=== PATIENT | male | born 1985 | race Two or more races ===

== ENCOUNTER 2020-06-11 13:47 | Outpatient (REF) | payer OTHER, SELFPAY ==
[2020-06-11 16:00] LABS: SARS COV2 PCR INHOUSE NEGATIVE (Negative)
== END 2020-06-11 13:48 | disposition home or self-care (01) ==
LOC: HO.LAB 13:47
PROVIDERS: Visit Provider Internal Medicine
DX: Z20.822 Contact with and (suspected) exposure to COVID-19 (principal)
CPT/HCPCS: C9803; U0003

== ENCOUNTER 2020-06-18 11:49 | Outpatient (REF) | payer OTHER, SELFPAY ==
[2020-06-18 13:30] LABS: COVID-19 Test Negative (Negative)
== END 2020-06-18 11:50 | disposition home or self-care (01) ==
LOC: HO.LAB 11:49
PROVIDERS: Visit Provider Internal Medicine
DX: Z20.822 Contact with and (suspected) exposure to COVID-19 (principal)
CPT/HCPCS: 36415; 87635; C9803

== ENCOUNTER 2020-11-03 09:47 | Outpatient (REF) | payer OTHER, SELFPAY ==
[2020-11-03 10:20] LABS: COVID-19 Test Negative (Negative)
== END 2020-11-03 09:48 | disposition home or self-care (01) ==
LOC: HO.LAB 09:47
PROVIDERS: Visit Provider Internal Medicine
DX: Z20.822 Contact with and (suspected) exposure to COVID-19 (principal)
CPT/HCPCS: 36415; 87635; C9803

== ENCOUNTER 2021-03-10 12:49 | Emergency (ER) | payer MEDICAID, SELFPAY ==
--- NOTE | ~2021-03-10 | CT_ITS ---
EXAMINATION: CT HEAD WITHOUT CONTRAST CLINICAL INFORMATION: Left-sided facial droop. COMPARISON: No relevant prior imaging. TECHNIQUE: Contiguous axial imaging was performed from the skull base to vertex without intravenous administration of contrast. This CT examination was performed using dose optimization techniques as appropriate, variously including the following: *Automated exposure control *Adjustment of mA and/or kV according to patient size (this includes techniques or standardized protocols for targeted exams where dose is matched to indication/reason for exam; i.e. extremities or head) *Use of iterative reconstruction technique DLP: 820 mGy-cm FINDINGS: There is no acute intracranial hemorrhage or abnormal extra-axial collection. No intracranial mass effect or midline shift. Lateral and third ventricles are normal. No hydrocephalus. Ruby-white matter differentiation is preserved and there is no evidence of acute territorial infarct. The calvarium and skull base are intact. Mastoid air cells and middle ear cavities are well aerated. No active paranasal sinus disease. CT/CT head/brain wo con IMPRESSION: Normal CT scan of the head.
[2021-03-10 13:05] VITALS: BP 220/107; PULSE 111; O2SAT 95; BMI 34.4
--- NOTE | 2021-03-10 13:41 | ED.NEUROSD ---
HPI - Neuro Symptoms/Deficit General Chief Complaint: Neuro Symptoms/Deficit Stated Complaint: facial spasm Time Seen by Provider: 03/10/21 13:40 Source: patient Mode of arrival: ambulatory Limitations: no limitations History of Present Illness HPI Narrative: complete L sided facial droop denies trauma denies tick bites Onset (ago): day(s) (2) Location: left face History of same: No Severity: severe Quality: weak and constant Relieving factors: none Exacerbating factors: none Context: gradual onset On Anticoagulants: No Associated symptoms: headaches Treatments Prior to Arrival: none Related Data Allergies Allergy/AdvReac Type Severity Reaction Status Date / Time No Known Allergies Allergy Verified 03/10/21 13:46 Review of Systems Review of Systems: Constitutional : No Fever, No Chills, No Fatigue ENT/Mouth : No sore throat, No Rhinorrhea Eyes: No Eye Pain, No Swelling, No Redness Cardiovascular : No Chest Pain, No SOB, No Dyspnea on Exertion Respiratory : No Cough, No Sputum Gastrointestinal : No Nausea, No Vomiting, No Diarrhea, No abdominal Pain Genitourinary : No Dysuria, No Urinary Frequency, No Hematuria, Musculoskeletal : No joint pain, No Myalgias, No Joint Swelling Skin : No Skin Lesions, No rash Neuro : pos facial Weakness, No Numbness, No Dizziness, positive Headache Psych : No Anxiety/Panic, No Depression Heme/Lymph: No Bruising, No Bleeding,No Lymphadenopathy Endocrine : No Polyuria, No Polydipsia All other systems reviewed and are negative [facility] Past Medical History Attestation statement: The following information was validated with the patient. Medical History (Updated 03/10/21 @ 15:54 by Sofya Davies DO) No known health problems Social History Social History (Updated 03/10/21 @ 14:35 by Sofya Davies DO) Alcohol intake: never Patient Tobacco Use Status: Never used Tobacco Use of substances other than those prescribed or required for medical reasons: No Advance Directives: No Advance Directives Information Provided: No Physical Exam Vital Signs: Vital Signs: Last Vital Signs Temp 99.2 F 03/10/21 15:19 Pulse 103 H 03/10/21 15:19 BP 206/116 H 03/10/21 15:19 Pulse Ox 99 03/10/21 15:19 BMI result Body Mass Index 34.4 Appearance: Alert. Oriented X3. No acute distress. Eyes: Pupils equal, round and reactive to light. ENT: Pharynx normal. L TM normal Neck: Normal inspection. Neck supple. CVS: Normal heart rate and rhythm. Pulses normal. Respiratory: No respiratory distress. Breath sounds normal. Abdomen: Soft and nontender. Skin: Skin warm and dry. Normal skin color. Normal skin turgor. Extremities: No lower extremity edema. No calf ttp Neuro: Oriented X 3. all extremities intact . L sided complete paralysis including L eyebrow Course Course Course Narrative: CT head negative with symptoms x 48 hours has HTN and DM will start on HCTZ and metformin refer to [facility], doubt stroke given it includes entire face BP still high - IV labetalol ordered, PO HCTZ has no insurance has no PCP anticipate if he responds to labetalol patient will need cheaper medications including metformin 1,000mg BID, HCTZ 25mg daily, amlodipine 5mg daily until he can see PCP, will not be able to get DM supplies until insurance is done signed out to [employer] D[employer]ER playing on phone, smiling no distress at this time no severe headaches - chronic findings, if his BP responds to oral agent and IV labetalol would start on metformin 1, 000mg BID, HCTZ 25mg daily, amlodipine 5mg daily with enough refills to get him through PCP appointment MDM - Neuro Symptoms/Deficit MDM Narrative Medical decision making narrative: 35 yo male who does not go to the doctor here with c/o gardual onset L sided facial paralysis including upper and lower - suspect peripheral palsy. He is HTNive will obtain labs and CT head. suspect longstanding HTN and not related to facial palsy Lab Data Result diagrams: 03/10/21 14:05 03/10/21 14:05 Labs: Lab Results 03/10/21 03/10/21 03/10/21 Range/Units 14:05 14:05 14:05 WBC 9.5 (4.8-10.8) X10*3/uL RBC 5.51 (4.60-5.80) X10*6/uL Hgb 16.8 (14.0-18.0) g/dl Hct 52.8 H (42.0-52.0) % MCV 95.8 (80.0-98.0) fL MCH 30.5 (27.0-33.0) pg MCHC 31.8 (31.0-36.0) g/dl RDW 13.7 (11.0-16.0) % Plt Count 163 (160-400) X10*3/uL MPV 11.8 (9.4-12.4) fL Immature Gran % (Auto) 0.3 (0.0-0.4) % Neut % (Auto) 67.2 (45-73) % Lymph % (Auto) 25.4 (20-40) % Marinette % (Auto) 6.2 (2-11) % Eos % (Auto) 0.6 (0-4) % Baso % (Auto) 0.3 (0-2) % Lymph # (Auto) 2.4 (1.2-4.9) X10*3/uL Marinette # (Auto) 0.6 (0.1-1.2) X10*3/uL Eos # (Auto) 0.1 (0.0-0.4) X10*3/uL Baso # (Auto) 0.0 (0.0-0.2) X10*3/uL Abs Immat Gran (auto) 0.03 (0.00-0.03) X10*3/uL Absolute Neuts (auto) 6.4 (2.0-8.3) x10*3/uL Absolute Nucleated RBC 0.000 (0.0-0.012) X10*3/uL Nucleated RBC % (auto) 0.0 (0.0-0.2) /100WBC Smear Tech's Comments VERIFIED Sodium 136 (135-145) mmol/L Potassium 3.8 (3.3-5.1) mmol/L Chloride 101 (96-108) mmol/L Carbon Dioxide 27 (22-29) mmol/L Anion Gap 12 (12-20) BUN 7 L (9-16) mg/dL Creatinine 0.90 (0.5-1.4) mg/dL Estim Creat Clear Calc 116.6 Estimated GFR > 60 Random Glucose 404 H* (60-115) mg/dL Estimat Average Glucose mg/dL Hemoglobin A1c % % Calcium 9.2 (8.4-10.2) mg/dL Total Bilirubin 0.5 (0.0-1.0) mg/dL Direct Bilirubin 0.2 (0.0-0.5) mg/dL AST 20 (5-37) U/L ALT 24 (0-40) U/L Alkaline Phosphatase 97 (39-117) U/L Total Protein 7.5 (6.5-8.0) g/dL Albumin 3.8 (3.5-5.0) g/dL TSH 1.75 (0.32-4.0) uIU/mL 03/10/21 Range/Units 14:05 WBC (4.8-10.8) X10*3/uL RBC (4.60-5.80) X10*6/uL Hgb (14.0-18.0) g/dl Hct (42.0-52.0) % MCV (80.0-98.0) fL MCH (27.0-33.0) pg MCHC (31.0-36.0) g/dl RDW (11.0-16.0) % Plt Count (160-400) X10*3/uL MPV (9.4-12.4) fL Immature Gran % (Auto) (0.0-0.4) % Neut % (Auto) (45-73) % Lymph % (Auto) (20-40) % Marinette % (Auto) (2-11) % Eos % (Auto) (0-4) % Baso % (Auto) (0-2) % Lymph # (Auto) (1.2-4.9) X10*3/uL Marinette # (Auto) (0.1-1.2) X10*3/uL Eos # (Auto) (0.0-0.4) X10*3/uL Baso # (Auto) (0.0-0.2) X10*3/uL Abs Immat Gran (auto) (0.00-0.03) X10*3/uL Absolute Neuts (auto) (2.0-8.3) x10*3/uL Absolute Nucleated RBC (0.0-0.012) X10*3/uL Nucleated RBC % (auto) (0.0-0.2) /100WBC Smear Tech's Comments Sodium (135-145) mmol/L Potassium (3.3-5.1) mmol/L Chloride (96-108) mmol/L Carbon Dioxide (22-29) mmol/L Anion Gap (12-20) BUN (9-16) mg/dL Creatinine (0.5-1.4) mg/dL Estim Creat Clear Calc Estimated GFR Random Glucose (60-115) mg/dL Estimat Average Glucose 326 mg/dL Hemoglobin A1c % 13.0 % Calcium (8.4-10.2) mg/dL Total Bilirubin (0.0-1.0) mg/dL Direct Bilirubin (0.0-0.5) mg/dL AST (5-37) U/L ALT (0-40) U/L Alkaline Phosphatase (39-117) U/L Total Protein (6.5-8.0) g/dL Albumin (3.5-5.0) g/dL TSH (0.32-4.0) uIU/mL ECG Data Attestation: I personally reviewed and interpreted this ECG as follows: ECG interpretation date: 03/10/21 ECG interpretation time: 14:04 Interpretation: Rate: 98 Rhythm: NSR Wilburn: left LVH Normal P waves. Normal AMAN. Normal QRS complex. ST T wave : no BRITTANY, normal qTC: normal prior studies: no acute ischemia The study has been interpreted contemporaneously by me. . Discharge Plan Discharge Clinical Impression: HTN (hypertension), Estrada's palsy, Diabetes Instructions: Type 2 Diabetes in Adults: New Diagnosis (ED), Hypertension (ED), Diabetes and Nutrition (ED) Additional Instructions: return to ED for any worsening symptoms or concerns you need to get family doctor as soon as possible. [place] [phone]
--- NOTE | 2021-03-10 13:47 | ECG_ITS ---
Test Reason : stroke? Blood Pressure : / mmHG Vent. Rate : 098 BPM Atrial Rate : 098 BPM P-R Int : 156 ms QRS Dur : 082 ms QT Int : 354 ms P-R-T Axes : 018 -16 008 degrees QTc Int : 451 ms Normal sinus rhythm Minimal voltage criteria for LVH, may be normal variant ( R in aVL ) Cannot rule out Anterior infarct , age undetermined Abnormal ECG No previous ECGs available Referred By: Sofya Davies Electronically Signed By:Billy Brewster
[2021-03-10 14:15] LABS: Basophils Percent Auto 0.3 % (0-2); Eosinophils Absolute Auto 0.1 X10*3/uL (0.0-0.4); Eosinophils Percent Auto 0.6 % (0-4); Hematocrit 52.8 % (42.0-52.0); Hemoglobin 16.8 g/dl (14.0-18.0); Imm Gran Abs Auto 0.03 X10*3/uL (0.00-0.03); Imm Gran Pct Auto 0.3 % (0.0-0.4); Lymphocytes Absolute Auto 2.4 X10*3/uL (1.2-4.9); Lymphocytes Percent Auto 25.4 % (20-40); MANUAL DIFF FLAG SCAN; Mean Corpuscular HGB Conc 31.8 g/dl (31.0-36.0); Mean Corpuscular Hemoglobin 30.5 pg (27.0-33.0); Mean Corpuscular Volume 95.8 fL (80.0-98.0); Monocytes Absolute Auto 0.6 X10*3/uL (0.1-1.2); Monocytes Percent Auto 6.2 % (2-11); Neutrophils Absolute Auto 6.4 x10*3/uL (2.0-8.3); Neutrophils Percent Auto 67.2 % (45-73); PLT CLUMP 1; Red Blood Count 5.51 X10*6/uL (4.60-5.80); Red Cell Distribution Width 13.7 % (11.0-16.0); SCAN SMEAR FLAG 1
[2021-03-10 14:16] LABS: White Blood Count 9.5 X10*3/uL (4.8-10.8)
[2021-03-10 14:30] LABS: Mean Platelet Volume 11.8 fL (9.4-12.4); Platelet Count 163 X10*3/uL (160-400); SLIDE REVIEW VERIFIED
[2021-03-10 14:33] LABS: Alanine Aminotransferase 24 U/L (0-40); Albumin Level 3.8 g/dL (3.5-5.0); Alkaline Phosphatase 97 U/L (39-117); Anion Gap 12 (12-20); Aspartate Amino Transferase 20 U/L (5-37); Bilirubin Direct 0.2 mg/dL (0.0-0.5); Bilirubin Total 0.5 mg/dL (0.0-1.0); Blood Urea Nitrogen 7 mg/dL (9-16); Calcium 9.2 mg/dL (8.4-10.2); Carbon Dioxide 27 mmol/L (22-29); Chloride 101 mmol/L (96-108); Creatinine Clr Calc Pharmacy 116.6; Estimated Glomerular Filt Rate > 60; Glucose Random 404 mg/dL (60-115); Potassium 3.8 mmol/L (3.3-5.1); Sodium 136 mmol/L (135-145); Total Protein 7.5 g/dL (6.5-8.0)
[2021-03-10 14:53] LABS: TSH reflex Free T4 1.75 uIU/mL (0.32-4.0)
[2021-03-10 15:02] LABS: Estimated Average Glucose 326 mg/dL
[2021-03-10 15:19] VITALS: BP 206/116; PULSE 103; TEMP 37.3; O2SAT 99
[2021-03-10] MEDS: hydroCHLOROthiazide 25 MG TABLET PO (15:41)
[2021-03-10] MEDS: Insulin Lispro 100 UNIT/ML 3 ML VIAL SUBCUT (15:42)
[2021-03-10] MEDS: Acetaminophen 325 MG TABLET 650 MG PO (15:45)
[2021-03-10 16:03] LABS: COVID-19 Test Negative (Negative); IDNOW Serial# 9DD0AD1C
[2021-03-10 16:04] VITALS: BP 212/130; PULSE 106
[2021-03-10] MEDS: 0.9 % Sodium Chloride 1,000 ML 999 ML IV (16:09)
[2021-03-10 16:36] VITALS: BP 197/116; PULSE 105
[2021-03-10] MEDS: Labetalol HCL 100 MG/20 ML VIAL 10 MG IVPUSH (16:36)
[2021-03-10 16:56] VITALS: BP 185/108; PULSE 98; RESP 17; TEMP 37.2; O2SAT 99
[2021-03-10 17:08] LABS: Glucose, Whole Blood 274 mg/dL (60-115)
[2021-03-11 05:02] LABS: Lyme Abs Screen <0.90 index
== END 2021-03-10 17:49 | disposition home or self-care (01) ==
PROVIDERS: Emergency Provider Emergency Medicine
DX: G51.0 Bell's palsy (principal); I10 Essential (primary) hypertension; E11.9 Type 2 diabetes mellitus without complications; R51.9 Headache, unspecified; Z20.822 Contact with and (suspected) exposure to COVID-19; Z79.899 Other long term (current) drug therapy
CPT/HCPCS: 36415; 70450; 80048; 80076; 82947; 83036; 84443; 85025; 86617; 86618; 87635; 93005; 96361; 96374; 99284; 99285

== ENCOUNTER → 2021-06-17 10:54 | Outpatient (BNVA) | payer OTHER, SELFPAY | PROVIDERS: PCP Physician Assistant; Visit Provider Dietitian, Registered | DX: E11.65 Type 2 diabetes mellitus with hyperglycemia (principal) | CPT/HCPCS: 97802 ==

== ENCOUNTER 2021-07-25 07:42 | Outpatient (REF) | payer OTHER, SELFPAY ==
[2021-07-25 08:43] LABS: Hematocrit 44.6 % (42.0-52.0); Mean Corpuscular HGB Conc 33.6 g/dl (31.0-36.0); Mean Corpuscular Hemoglobin 28.6 pg (27.0-33.0); Mean Platelet Volume 11.6 fL (9.4-12.4); Platelet Count 257 X10*3/uL (160-400); Red Blood Count 5.25 X10*6/uL (4.60-5.80); Red Cell Distribution Width 13.9 % (11.0-16.0); White Blood Count 10.7 X10*3/uL (4.8-10.8)
[2021-07-25 08:50] LABS: Estimated Average Glucose 108 mg/dL; Hemoglobin A1c % 5.4 %
[2021-07-25 09:06] LABS: Alanine Aminotransferase 22 U/L (0-40); Albumin Level 4.2 g/dL (3.5-5.0); Alkaline Phosphatase 71 U/L (39-117); Anion Gap 12 (12-20); Aspartate Amino Transferase 16 U/L (5-37); Bilirubin Total 0.5 mg/dL (0.0-1.0); Blood Urea Nitrogen 11 mg/dL (9-16); Calcium 9.8 mg/dL (8.4-10.2); Carbon Dioxide 27 mmol/L (22-29); Chloride 105 mmol/L (96-108); Cholesterol 150 mg/dL; Estimated Glomerular Filt Rate > 60; Glucose Fasting 99 mg/dL (60-99); HDL Cholesterol 29 mg/dL; LDL Cholesterol Calculated 100 mg/dl; Potassium 4.2 mmol/L (3.3-5.1); Sodium 140 mmol/L (135-145); Total Protein 7.7 g/dL (6.5-8.0); Triglycerides 109 mg/dL
[2021-07-25 09:27] LABS: TSH reflex Free T4 2.01 uIU/mL (0.32-4.0)
[2021-07-25 09:41] LABS: Creatinine Urine 109.44 mg/dL; Microalbum/Creatinine Ratio Ur 346.3 ug/mg cr
[2021-07-27 19:45] LABS: Herpes Simplex Type 1 IgG <0.90 index; Herpes Simplex Type 2 IgG <0.90 index
== END 2021-07-25 07:43 | disposition home or self-care (01) ==
LOC: HO.LAB 07:42
PROVIDERS: PCP Physician Assistant; Visit Provider Physician Assistant
DX: E11.65 Type 2 diabetes mellitus with hyperglycemia (principal); G51.0 Bell's palsy
CPT/HCPCS: 36415; 80053; 80061; 82043; 83036; 84443; 85027; 86695; 86696

== ENCOUNTER → 2021-07-29 11:22 | Outpatient (BNVA) | payer OTHER, SELFPAY | PROVIDERS: PCP Physician Assistant; Visit Provider Dietitian, Registered | DX: E11.65 Type 2 diabetes mellitus with hyperglycemia (principal) | CPT/HCPCS: 97803 ==

== ENCOUNTER → 2021-09-27 11:20 | Outpatient (BNVA) | payer OTHER, SELFPAY | PROVIDERS: PCP Physician Assistant; Visit Provider Dietitian, Registered | DX: E11.65 Type 2 diabetes mellitus with hyperglycemia (principal) | CPT/HCPCS: 97803 ==

== ENCOUNTER → 2022-01-30 09:22 | Outpatient (BNVA) | payer OTHER, SELFPAY | PROVIDERS: PCP Physician Assistant; Visit Provider Dietitian, Registered | DX: E11.65 Type 2 diabetes mellitus with hyperglycemia (principal) | CPT/HCPCS: 97803 ==

== ENCOUNTER → 2022-07-31 09:58 | Outpatient (BNVA) | payer OTHER, SELFPAY | PROVIDERS: PCP Physician Assistant; Visit Provider Dietitian, Registered | DX: E11.65 Type 2 diabetes mellitus with hyperglycemia (principal); E66.9 Obesity, unspecified; Z68.41 Body mass index [BMI] 40.0-44.9, adult; Z71.3 Dietary counseling and surveillance | CPT/HCPCS: 97803 ==

== ENCOUNTER 2022-12-27 10:39 | Outpatient (AMB) | payer OTHER, SELFPAY ==
--- NOTE | 2022-12-27 10:47 | A.OFFPC_ITS ---
Vital Signs 12/27/22 11:00 Height 5 ft 3 in Weight 221 lb BMI 39.1 BP 142/100 H Blood Pressure Location Lt brachial Position Sitting Respiration 17 Pulse 82 Pulse Source Pulse Oximeter Pulse Oximetry (%) 99 Oxygen Delivery Method Room Air Intake Visit Reasons: DM, HTN Intake Note: Patient is here to follow up on DMM and HTN. Neonatal Doctor Required: No Information Interpreted: non-clinical & clinical Head Men'S Golf Coach: Not Required per policy Accompanied by: Self / Same As Patient Allergies No Known Allergies Allergy (Verified 12/27/22 12:14) Medication List - Last Reconciled 12/27/22 by Wale Ennis PA-C amlodipine 10 mg PO DAILY 90 days blood sugar diagnostic (FreeStyle Lite Strips) As directed blood-glucose meter (FreeStyle Lite Meter kit) As directed lancets (FreeStyle Lancets) As directed lisinopril-hydrochlorothiazide 20-25 mg 1 tab PO DAILY Tobacco use date assessed: 06/27/22 Dental Screening Dental Screen Date: 12/27/22 Did you have a dental visit in the last 12 months?: No Did you have a dental problem in the last 6 months where you did not have access to dental care?: No Was dental information given to patient?: Yes HPI DM, HTN HPI Details Patient is a 37 year male here today for followup? Pmhx significant for DMII, HTN. Chichester palsy, obesity /.. ?hypertension:? Today's blood pressure in office slightly elevated. He reports at times he takes his blood pressure at home his blood pressures are slightly elevated. ? Otherwise denies any chest discomfort, headaches, shortness of breath.? .. ? Type 2 diabetes:? Diabetes well controlled without medication this time . Speaking with a dietitian and has been able to lose weight since last office visit.. PLAN:? Will continue to follow fasting blood sugar and A1c.? . ? Estrada s palsy:? Has resolving left-sided facial paralysis.? Denies any dysphagia or odynophagia, chocking.? He does have some difficulty with mastication on his left side.? Also reports still has sharp pains that are elia rt-lived over the left side of his face. .. Obesity:? Continues to work on strict dietary modifications to help lose weight.? Laboratory Tests 07/25/21 12/27/21 06/27/22 08:06 10:11 08:45 RBC 5.25 Hgb A1c (Clinic) 5.0 5.1 Laboratory Tests 07/25/21 07/25/21 07/25/21 08:06 08:06 08:06 Hgb 15.0 Hgb A1c (Clinic) Cholesterol 150 LDL Cholesterol, C alc 100 12/27/21 06/27/22 10:11 08:45 Hgb Hgb A1c (Clinic) 5.0 5.1 Cholesterol LDL Cholesterol, C alc [facility] Medical History No known health problems Family History Sister Pacemaker Social History Housing: Apartment Alcohol intake: never Patient Tobacco Use Status: Never used Tobacco e-Cigarette/Vaping Use: Never Used Current occupational status: employed 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 Depression Screening Interpretation: Positive Depression Screening Done: Yes Source: Developed by Drs. Alphonse Jung, Madan Wallace and colleagues, with an educational johana from [employer]. Thrive Questionnaire Date Thrive assessed: 06/27/22 SIN-7 AMB Questionnaire SIN-7 Date SIN - 7 assessed: 06/27/22 Source: Developed by Drs. Alphonse Jung, Madan Wallace and colleagues, with an educational johana from [employer]. Review of Systems Const Denies headache(s) Eyes Denies loss of vision ENT Denies vertigo, Denies dizziness, Denies headache(s) and Denies sore throat Card Denies chest pain, Denies leg edema and Denies lightheadedness Resp Denies cough, Denies hemoptysis and Denies wheezing GI Denies abdominal pain, Denies melena, Denies constipation, Denies diarrhea and Denies vomiting Denies dysuria, Denies urinary frequency and Denies urinary urgency Musc Denies arthralgias, Denies joint swelling, Denies numbness and Denies tingling Neuro Denies Abnormal speech present, Denies behavioral changes, Denies vertigo, Denies dizziness, Denies headache(s), Denies loss of vision, Denies memory loss, Denies numbness and Denies tingling Psych Denies anxiety, Denies behavioral changes, Denies depression, Denies memory loss and Denies panic attacks Amaury/Lymph Denies easy bleeding and Denies easy bruising Aller/Immun Denies wheezing Physical exam (Primary Care) Vital Signs: Last Vital Signs Pulse 82 12/27/22 11:00 Resp 17 12/27/22 11:00 BP 142/100 H 12/27/22 11:00 Pulse Ox 99 12/27/22 11:00 Oxygen Delivery Method Room Air 12/27/22 11:00 BMI result Body Mass Index 39.1 BMI Assessment/Plan discussion: High Tobacco/Smoking Status: Tobacco use Status Tobacco use date assessed 06/27/22 12/27/22 10:47 Patient Tobacco Use Status Never used Tobacco 12/27/22 10:47 e-Cigarette/Vaping Use Never Used 12/27/22 10:47 Depression Screening Interpretation: Positive Thrive Assessment: Date of Thrive Assessment Date Thrive assessed 06/27/22 12/27/22 10:47 Const Other: OBESE General: healthy appearing, no acute distress, alert and awake Nutritional Appearance: well nourished Orientation/consciousness: oriented to person, oriented to place and oriented to time HENMT Ears: TM's normal bilaterally General nose exam: Normal nasal mucous membranes and turbinates present Eyes Conjunctivae: conjunctivae normal Sclerae: sclerae normal Pupils: Equal, round and reactive pupils present Neck Neck: Yes no lymphadenopathy and Yes no JVD Thyroid: Thyroid normal Carotids: no bruits Resp Effort & Inspection: normal respiratory effort and not tachypneic Auscultation: no crackles, no rales, no rhonchi and no wheezes Cardio Rate: regular rate Rhythm: regular rhythm Heart sounds: no murmurs and normal S1 and S2 GI Palpation (GI): Soft to palpation, nontender, no hepatomegaly and no splenomegaly Auscultation: normal bowel sounds Skin General skin exam: no rashes or lesions noted and dry skin Neuro General: oriented to person, oriented to place and oriented to time Cranial nerves: Yes Equal, round and reactive pupils present Speech: No Abnormal speech present Gait exam (Neuro): Normal gait present Motor exam (neuro): no tremor noted Extrem Right upper extremity: full ROM Left upper extremity: full ROM Right lower extremity: full ROM; no edema Left lower extremity: full ROM; no edema Psych Mental Status: mental status grossly normal Speech and movement: Normal speech and movement present Affect: normal affect Attitude: cooperative Thought process: Normal thought process present Results AMB Hemoglobin A1c AMB Hemoglobin A1c 4.8 % Last Edit by SRINATH Garcia on 12/27/22 11:04 Results Reviewed Results Reviewed: Laboratory Last Values Hgb A1c (Clinic) 4.8 % (4.0-6.0) 12/27/22 11:03 Assessment and Plan Assessment & Plan (1) DMII (diabetes mellitus, type 2): Comment: Pt no longer on DM meds , now strictly working diet and exercise BMI at 40.7 on (08/08/21) 39.1 (01/30/22) BMI 40.3 (09/27/21) BMI 41.6 (07/29/21), BMI 42.5 (06/17/21) Code(s): E11.9 - Type 2 diabetes mellitus without complications Qualifiers: Diabetes mellitus complication status: with hyperglycemia Diabetes mellitus recreation activities coordinator insulin use: without recreation activities coordinator use Qualified Code(s): E11.65 - Type 2 diabetes mellitus with hyperglycemia Plan: A1c 4.8 today Diabetes is diet controlled Continue to follow-up with dietitian Low carbohydrate diet and weight loss (2) Microalbuminuria due to type 2 diabetes mellitus: Code(s): E11.29 - Type 2 diabetes mellitus with other diabetic kidney complication; R80.9 - Proteinuria, unspecified Plan: Continue to follow-up with nephrology. His type 2 diabetes remains controlled. (3) Obese: Code(s): E66.9 - Obesity, unspecified Qualifiers: Body mass index: BMI 39.0-39.9 Obesity classification: adult class 2 (BMI 35 - 39.9) Obesity type: due to excess calories Serious obesity comorbidity presence: with serious comorbidity Qualified Code(s): E66.01 - Morbid (severe) obesity due to excess calories; Z68.39 - Body mass index [BMI] 39.0-39.9, adult Plan: He does understand his BMI is over 30 will continue working on being more physically active and adapting to better eating habits to reduce his weight.. (4) HTN (hypertension): Code(s): I10 - Essential (primary) hypertension Qualifiers: Hypertension type: primary hypertension Qualified Code(s): I10 - Essential (primary) hypertension Plan: Goal BP equal or less than 140/90 Low-sodium diet and weight loss Continue amlodipine and lisinopril-hydrochlorothiazide Orders: Orders Microalbumin, Random (w Creat) 12/27/22 E11.29 - Type 2 diabetes mellitus with other diabetic kidney complication, R80.9 - Proteinuria, unspecified AMB Hemoglobin A1c 12/27/22 E11.9 - Type 2 diabetes mellitus without complications Comprehensive [place]. Panel Fast 12/27/22 E11.65 - Type 2 diabetes mellitus with hyperglycemia Complete Blood Count no Diff 12/27/22 I10 - Essential (primary) hypertension Medications: Refilled lisinopril-hydrochlorothiazide 20-25 mg 1 tab PO DAILY 90 tabs 1RF I10 - Essential (primary) hypertension amlodipine 10 mg PO DAILY 90 tabs 1RF 90 days I10 - Essential (primary) hypertension Coding Level of Care Code Est Pt Level 4 (45036) Diagnoses Type 2 diabetes mellitus with hyperglycemia, without long-term current use of insulin E11.65 Diabetes mellitus complication status: with hyperglycemia Diabetes mellitus recreation activities coordinator insulin use: without fdc use Microalbuminuria due to type 2 diabetes mellitus E11.29; R80.9 Class 2 severe obesity due to excess calories with serious comorbidity and body mass index (BMI) of 39.0 to 39.9 in adult E66.01; Z68.39 Body mass index: BMI 39.0-39.9 Obesity classification: adult class 2 (BMI 35 - 39.9) Obesity type: due to excess calories Serious obesity comorbidity presence: with serious comorbidity Primary hypertension I10 Hypertension type: primary hypertension
[2022-12-27 11:00] VITALS: BP 142/100; PULSE 82; RESP 17; O2SAT 99; BMI 39.1
== END 2022-12-27 11:17 | disposition home or self-care (01) ==
PROVIDERS: Visit Provider Physician Assistant
DX: E11.9 Type 2 diabetes mellitus without complications (principal)
CPT/HCPCS: 83036; 99214

== ENCOUNTER 2023-05-24 22:21 | Emergency (ER) | payer OTHER, SELFPAY ==
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
[2023-05-24 22:26] VITALS: BP 192/102; BP 198/104; PULSE 95; PULSE 98; RESP 17; TEMP 36.7; O2SAT 98; O2SAT 99; BMI 41.7
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
[2023-05-24] MEDS: Bacitracin Oint 0.9 GM PACKET 1 APPL TOPICAL (22:56)
[2023-05-24] MEDS: Acetaminophen 325 MG TABLET 975 MG PO (22:56)
[2023-05-25 00:23] VITALS: BP 200/128; PULSE 100; RESP 15; TEMP 36.7; O2SAT 99
[2023-05-25 00:54] VITALS: BP 162/83; PULSE 98; RESP 16; TEMP 36.9; O2SAT 97
[2023-05-25 01:16] VITALS: BP 162/83; PULSE 98; RESP 17; TEMP 36.8; O2SAT 99
== END 2023-05-25 01:18 | disposition home or self-care (01) ==
PROVIDERS: Emergency Provider Emergency Medicine; PCP Physician Assistant
DX: S13.4XXA Sprain of ligaments of cervical spine, initial encounter (principal); S69.92XA Unspecified injury of left wrist, hand and finger(s), initial encounter; S40.812A Abrasion of left upper arm, initial encounter; R51.9 Headache, unspecified; M54.2 Cervicalgia; M25.532 Pain in left wrist; M79.10 Myalgia, unspecified site; V42.5XXA Car driver injured in collision with two- or three-wheeled motor vehicle in traffic accident, initial encounter; Y93.9 Activity, unspecified; Y92.410 Unspecified street and highway as the place of occurrence of the external cause; Y99.8 Other external cause status
CPT/HCPCS: 70450; 72125; 73110; 99284

== ENCOUNTER 2023-09-06 09:43 | Emergency (ER) | payer OTHER, SELFPAY ==
[2023-09-06 09:45] VITALS: BP 174/99; PULSE 92; RESP 19; TEMP 36.6; O2SAT 98; BMI 39.1
--- NOTE | 2023-09-06 09:50 | ECG_ITS ---
Test Reason : high blood pressure Blood Pressure : / mmHG Vent. Rate : 092 BPM Atrial Rate : 092 BPM P-R Int : 150 ms QRS Dur : 080 ms QT Int : 360 ms P-R-T Axes : 016 -13 036 degrees QTc Int : 445 ms Normal sinus rhythm Minimal voltage criteria for LVH, may be normal variant ( R in aVL ) Anterior infarct (cited on or before 10-MAR-2021) Abnormal ECG When compared with ECG of 10-MAR-2021 13:54, No significant change was found Referred By: Generic ED Physician Electronically Signed By:RODRICK GUERIN MD
[2023-09-06 10:06] LABS: MANUAL DIFF FLAG NO
[2023-09-06 10:08] LABS: Basophils Percent Auto 0.5 % (0-2); Eosinophils Percent Auto 0.4 % (0-4); Hematocrit 52.8 % (42.0-52.0); Imm Gran Abs Auto 0.02 X10*3/uL (0.00-0.03); Imm Gran Pct Auto 0.3 % (0.0-0.4); Lymphocytes Percent Auto 26.3 % (20-40); Mean Corpuscular HGB Conc 34.1 g/dl (31.0-36.0); Mean Corpuscular Hemoglobin 29.3 pg (27.0-33.0); Mean Platelet Volume 11.7 fL (9.4-12.4); Monocytes Absolute Auto 0.6 X10*3/uL (0.1-1.2); Monocytes Percent Auto 7.5 % (2-11); Platelet Count 180 X10*3/uL (160-400); Red Blood Count 6.14 X10*6/uL (4.60-5.80); Red Cell Distribution Width 13.9 % (11.0-16.0); White Blood Count 7.7 X10*3/uL (4.8-10.8)
[2023-09-06 10:20] LABS: Anion Gap 13 (12-20); Blood Urea Nitrogen 11 mg/dL (9-16); Carbon Dioxide 27 mmol/L (22-29); Chloride 106 mmol/L (96-108); Creatinine Clr Calc Pharmacy 127.8; Estimated Glomerular Filt Rate > 60; Glucose Random 123 mg/dL (60-115); Potassium 4.1 mmol/L (3.3-5.1); Sodium 142 mmol/L (135-145)
[2023-09-06 10:34] LABS: Troponin-I High Sensitivity 3.4 ng/L (<3.5-35.0)
== END 2023-09-06 12:45 | disposition left against medical advice (07) ==
PROVIDERS: Emergency Provider Emergency Medicine; PCP Physician Assistant
DX: I10 Essential (primary) hypertension (principal)
CPT/HCPCS: 36415; 80048; 84484; 85025; 93005; 99281; 99283

== ENCOUNTER → 2023-09-06 09:50 | Outpatient (BNV) | payer OTHER, SELFPAY | PROVIDERS: Emergency Provider Emergency Medicine; PCP Physician Assistant; Visit Provider Internal Medicine Cardiovascular Disease | DX: I10 Essential (primary) hypertension (principal); R94.31 Abnormal electrocardiogram [ECG] [EKG] | CPT/HCPCS: 93010 ==

== ENCOUNTER 2023-09-27 13:27 | Outpatient (AMB) | payer OTHER, SELFPAY ==
--- NOTE | 2023-09-27 13:37 | A.OFFPC_ITS ---
Vital Signs 09/27/23 13:38 Height 5 ft 4 in Weight 243 lb 2 oz BMI 41.7 BP 158/102 H Blood Pressure Location Lt brachial Position Standing Pulse 105 H Pulse Source Pulse Oximeter Pulse Oximetry (%) 97 Oxygen Delivery Method Room Air Intake Visit Reasons: PE- NEEDS A1C Baby Sitter Required: No Allergies No Known Allergies Allergy (Verified 09/27/23 13:44) Medication List - Last Reconciled 09/27/23 by Wale Ennis PA-C amlodipine 10 mg PO DAILY 90 days bacitracin 1 appl topical TID blood sugar diagnostic (FreeStyle Lite Strips) As directed blood-glucose meter (FreeStyle Lite Meter kit) As directed cyclobenzaprine 10 mg PO TID PRN ibuprofen 600 mg PO Q6H PRN lancets (FreeStyle Lancets) As directed lisinopril-hydrochlorothiazide 20-25 mg 1 tab PO DAILY Tobacco use date assessed: 06/27/22 Dental Screening Dental Screen Date: 12/27/22 HPI PE- NEEDS A1C HPI Details Patient is a 38 year male here today routine annual physical? Pmhx significant for DMII, HTN. [place] palsy, obesity /.. ?hypertension:? Today's blood pressure in office slightly elevated. He admits to not taking his blood pressure medication.. He also has not been monitoring his blood pressure at home.. He does admit to not being compliant with a low-sodium diet. ? Otherwise denies any chest discomfort, headaches, shortness of breath.? .. ? Type 2 diabetes:? Diabetes well controlled without medication this time . Speaking with a dietitian and has been able to lose weight since last office visit.. PLAN:? Will continue to follow fasting blood sugar and A1c.? .. Obesity:? Has unfortunately gained weight since last office visit. He does admit to dietary indiscretion as of lately. .. Vaccines: Up-to-date with COVID vaccine, declines tetanus vaccine today Laboratory Tests 09/06/23 10:01 RBC 6.14 H Hgb 18.0 Creatinine 0.86 Random Glucose 123 H ? PFSH Medical History No known health problems Family History Sister Pacemaker Social History Housing: Apartment Alcohol intake: never Patient Tobacco Use Status: Never used Tobacco e-Cigarette/Vaping Use: Never Used Current occupational status: employed Current occupation: [employer] Cognitive needs: No Hearing needs: No Vision needs: No Questionnaire PHQ-9 Over the last 2 weeks, how often have you been bothered by any of the following problems? 1. Little interest or pleasure in doing things: not at all 2. Feeling down, depressed, or hopeless: not at all 3. Trouble falling or staying asleep, or sleeping too much: not at all 4. Feeling tired or having little energy: not at all 5. Poor appetite or overeating: not at all 6. Feeling bad about yourself - or that you are a failure or have let yourself or your family down: not at all 7. Trouble concentrating on things, such as reading the newspaper or watching television: not at all 8. Moving or speaking so slowly that other people could have noticed. Or the opposite - being so fidgety or restless that you have been moving around a lot more than usual: not at all 9. Thoughts that you would be better off or of hurting yourself in some way: not at all Total score: 0 Depression Screening Interpretation: Negative Depression Screening Done: Yes 89061 - PHQ-9 Billing: Yes Source: Developed by Drs. Alphonse Jung, Brigitte Hein, Madan Machuca and colleagues, with an educational johana from [email or web address] Thrive Questionnaire Date Thrive assessed: 09/27/23 I am a: Patient What is your living situation today?: I have a steady place to live Within the past 12 months, did the food you bought not last and you didn't have the money to get more?: Never true Within the past 12 months, did you worry whether your food would run out before you got money to buy more?: Never true Do you have trouble paying for medicines?: No Do you have trouble getting transportation to medical appointments?: No Do you have trouble paying your heating and electricity bill?: No Do you have trouble taking care of your child, family member or friend?: No Do you have trouble with day-to-day activities such as bathing, preparing meals, shopping, managing finances, etc.?: No Are you currently unemployed and looking for a job?: No Are you interested in more education?: No Please select the resources that you would like help with: None Currently or been in a relationship where the following occur: No concerns reported THRIVE Score: 0 AUDIT C Alcohol Use Questionnaire (AUDIT-C) 1. How often do you have a drink containing alcohol?: Never 3. How often do you have six or more drinks on one occasion?: Never Total Score: 0 SIN-7 AMB Questionnaire SIN-7 Date SIN - 7 assessed: 09/27/23 Feeling nervous, anxious, or on edge: 0 = Not at all Not being able to stop or control worryin = Not at all Worrying too much about different things: 0 = Not at all Trouble relaxin = Not at all Being so restless that it is hard to sit still: 0 = Not at all Becoming easily annoyed or irritable: 0 = Not at all Feeling afraid as if something awful might happen: 0 = Not at all Total SIN-7 score (0-4 normal; 5-9 mild; 10-14 moderate; 15-21 severe): 0 Source: Developed by Drs. Alphonse Jung, Brigitte Hein, Madan Machuca and colleagues, with an educational johana from [employer] SIN-7 Assessment Billing SIN-7 Assessment Tool: SIN-7 Assessment 08726 Review of Systems Const Denies body aches, Denies chills, Denies excessive sweating, Denies fatigue, Denies fever(s) and Denies headache(s) Eyes Denies blurry vision ENT Denies dysphagia, Denies vertigo, Denies dizziness, Denies headache(s), Denies hearing loss and Denies tinnitus Card Denies chest pain, Denies chest pain with activity, Denies syncope, Denies irregular heart rhythm and Denies dyspnea Resp Denies chest congestion, Denies cough, Denies hemoptysis, Denies dyspnea and Denies wheezing GI Denies abdominal pain, Denies melena, Denies hematochezia, Denies coffee ground emesis, Denies dysphagia, Denies diarrhea, Denies nausea and Denies vomiting Denies difficulty urinating, Denies dysuria, Denies urinary frequency, Denies urinary hesitancy and Denies urinary urgency Musc Denies arthralgias, Denies limited range of motion, Denies muscle cramps and De nies muscle weakness Skin/Breast Denies rash and Denies skin ulcer Neuro Denies Abnormal speech present, Denies confusion, Denies vertigo, Denies dizz iness, Denies syncope, Denies headache(s), Denies memory loss and Denies seizure-like activity Psych Denies anxiety, Denies confusion, Denies depression, Denies memory loss, Denies panic attacks and Denies paranoia Endo Denies excessive sweating, Denies fatigue, Denies flushing, Denies polydipsia and Denies polyuria Aller/Immun Denies wheezing Physical exam (Primary Care) Vital Signs: Last Vital Signs Pulse 105 H 09/27/23 13:38 BP 158/102 H 09/27/23 13:38 Pulse Ox 97 09/27/23 13:38 Oxygen Delivery Method Room Air 09/27/23 13:38 BMI result Body Mass Index 41.7 Tobacco/Smoking Status: Tobacco use Status Tobacco use date assessed 06/27/22 09/27/23 13:43 Patient Tobacco Use Status Never used Tobacco 09/27/23 13:43 e-Cigarette/Vaping Use Never Used 09/27/23 13:43 PHQ-9: PHQ-9 Score PHQ-9: Total score 0 09/27/23 13:43 Depression Screening Interpretation: Negative Thrive Assessment: Date of Thrive Assessment Date Thrive assessed 09/27/23 09/27/23 13:43 Currently or been in a relationship where the following occur: No concerns reported Const General: cooperative, comfortable, no acute distress, alert and awake; No confusion Orientation/consciousness: oriented to person, oriented to place, patient oriented x3 and No confusion HENMT Head: Yes normocephalic Ears: external ears normal and TM's normal bilaterally Face and sinus: No sinus tenderness Mouth: Normal oral and palatal mucosa present and tongue normal Teeth and gingiva: dentition normal and gingiva normal Throat: Yes posterior oropharynx normal, Yes tonsils normal and Yes uvula midline Eyes Conjunctivae: conjunctivae normal Sclerae: sclerae normal Pupils: Equal, round and reactive pupils present EOM: EOMs intact bilaterally Direct Ophthalmoscopy: No no photophobia Neck Neck: Yes no lymphadenopathy, No tender and Yes no JVD Thyroid: Thyroid normal Carotids: no bruits Chest Chest palpation & inspection: no tenderness Resp Effort & Inspection: normal respiratory effort, no audible wheezes, not labored and no stridor Auscultation: no crackles, no rales, no rhonchi and no wheezes Cardio Jugular venous distension: no JVD Rate: regular rate, not bradycardic and not tachycardic Rhythm: regular rhythm Bruits: no carotid bruits Peripheral pulses: Peripheral pulses 2+ throughout GI Inspection: Yes normal to inspection, No abdominal wall ecchymosis and No visible herniation Palpation (GI): Soft to palpation, nontender, no guarding, not rigid and No hepatosplenomegaly present Auscultation: normoactive bowel sounds General: Yes no CVA tenderness Back/Spine/Pelvis Back: no CVA tenderness and No back tenderness Cervical Spine: cervical ROM normal Thoracic/Lumbar Spine: thoracic and lumbar spine normal to inspection, straight leg raise negative bilaterally, No thoraco-lumbar ROM limited and No lumbar spinal tenderness Skin Lesions: no lesions Rashes: no rashes Wounds: no wounds Neuro General: oriented to person, oriented to place, patient oriented x3, CN's II-XI intact bilaterally and No confusion Cranial nerves: Yes Equal, round and reactive pupils present and Yes Normal accommodation reflex present Cognition (Neuro): normal cognition Speech: No Abnormal speech present Gait exam (Neuro): Normal gait present Motor exam (neuro): 5/5 motor strength present throughout Extrem Right upper extremity: full ROM; no cyanosis Left upper extremity: full ROM; no cyanosis Right lower extremity: no edema Left lower extremity: no edema Psych Appearance: grossly normal Mental Status: mental status grossly normal Affect: normal affect Attitude: cooperative Thought process: Normal thought process present Assessment and Plan Assessment & Plan (1) Annual physical exam: Code(s): Z00.00 - Encounter for general adult medical examination without abnormal findings (2) DMII (diabetes mellitus, type 2): Comment: Pt no longer on DM meds , now strictly working diet and exercise BMI at 40.7 on (08/08/21) 39.1 (01/30/22) BMI 40.3 (09/27/21) BMI 41.6 (07/29/21), BMI 42.5 (06/17/21) Code(s): E11.9 - Type 2 diabetes mellitus without complications Qualifiers: Diabetes mellitus senior living insulin use: without senior living use Diabetes mellitus complication status: with hyperglycemia Qualified Code(s): E11.65 - Type 2 diabetes mellitus with hyperglycemia Plan: Diabetes has been fairly well controlled with lifestyle modifications. Recheck fasting blood sugar and A1c and follow-up in 3 months. Diabetes is diet controlled Continue to follow-up with dietitian Low carbohydrate diet and weight loss (3) Microalbuminuria due to type 2 diabetes mellitus: Code(s): E11.29 - Type 2 diabetes mellitus with other diabetic kidney complication; R80.9 - Proteinuria, unspecified Plan: Continue to follow-up with nephrology. His type 2 diabetes remains controlled. (4) Obese: Code(s): E66.9 - Obesity, unspecified Qualifiers: Obesity type: due to excess calories Obesity classification: adult class 2 (BMI 35 - 39.9) Serious obesity comorbidity presence: with serious comorbidity Body mass index: BMI 39.0-39.9 Qualified Code(s): E66.01 - Morbid (severe) obesity due to excess calories; Z68.39 - Body mass index [BMI] 39.0- 39.9, adult Plan: He does understand his BMI is over 30 will continue working on being more physically active and adapting to better eating habits to reduce his weight.. (5) HTN (hypertension): Code(s): I10 - Essential (primary) hypertension Qualifiers: Hypertension type: primary hypertension Qualified Code(s): I10 - Essential (primary) hypertension Plan: Patient's blood pressure elevated today in office. He reports he has not been compliant with his blood pressure medication and low-sodium diet. He promises to restart low-sodium diet and be more compliant with medication. Will not make any adjustments in blood pressure med doses at this time. Goal blood pressure to be below 140/90 Continue amlodipine and lisinopril-hydrochlorothiazide Orders: Orders Lipid Panel Today E11.65 - Type 2 diabetes mellitus with hyperglycemia Microalbumin, Random (w Creat) Today I10 - Essential (primary) hypertension Comprehensive [place]. Panel Fast Today E11.65 - Type 2 diabetes mellitus with hyperglycemia Complete Blood Count no Diff Today E11.65 - Type 2 diabetes mellitus with hyperglycemia Hemoglobin A1c Today E11.65 - Type 2 diabetes mellitus with hyperglycemia Referrals Wireless Manager Nutrition Referral E11.65 - Type 2 diabetes mellitus with hyperglycemia Patient Instructions: Goal: Blood pressure to be below 140/90, A1c to remain below 7.0 Barriers: Adherence to medication, healthy eating habits and physical activity Coding Level of Care Code Est Pt Prev Care 18-39y(90653) Diagnoses Annual physical exam Z00.00 Type 2 diabetes mellitus with hyperglycemia, without long-term current use of insulin E11.65 Diabetes mellitus sand bobber insulin use: without senior living use Diabetes mellitus complication status: with hyperglycemia Microalbuminuria due to type 2 diabetes mellitus E11.29; R80.9 Class 2 severe obesity due to excess calories with serious comorbidity and body mass index (BMI) of 39.0 to 39.9 in adult E66.01; Z68.39 Obesity type: due to excess calories Obesity classification: adult class 2 (BMI 35 - 39.9) Serious obesity comorbidity presence: with serious comorbidity Body mass index: BMI 39.0-39.9 Primary hypertension I10 Hypertension type: primary hypertension Additional Codes SIN-7 Assessment Billing - SIN-7 Assessment Tool: SIN-7 Assessment 86608 ([id number])
[2023-09-27 13:38] VITALS: BP 158/102; PULSE 105; O2SAT 97; BMI 41.7
== END 2023-09-27 14:01 | disposition home or self-care (01) ==
PROVIDERS: PCP Physician Assistant; Visit Provider Physician Assistant
DX: Z00.00 Encounter for general adult medical examination without abnormal findings (principal); E11.65 Type 2 diabetes mellitus with hyperglycemia; E66.01 Morbid (severe) obesity due to excess calories; Z68.41 Body mass index [BMI] 40.0-44.9, adult; E11.29 Type 2 diabetes mellitus with other diabetic kidney complication; R80.9 Proteinuria, unspecified; I10 Essential (primary) hypertension
CPT/HCPCS: 99395

== ENCOUNTER 2023-10-10 09:21 | Outpatient (AMB) | payer OTHER, SELFPAY ==
--- NOTE | 2023-10-10 09:40 | A.OFFVIS_ITS ---
VS Expanded 10/10/23 09:41 10/16/23 14:00 Height 5 ft 4 in 5 ft 4 in Weight 248 lb 7.375 oz 248 lb BMI 42.6 42.6 Intake Visit Reasons: T2DM with hyperglycemia-confirmed Allergies No Known Allergies Allergy (Verified 09/27/23 13:44) Nutrition Presentation Details: Pt presents for MNT for T2DM Pt was last seen in 2021, want to resume working on healthier meal planning Lacks motivation- currently only member in the fam working on healthier eating/exercise habits BS Monitoring Most Recent Diabetes Results: Creatinine 0.86 mg/dL (0.5-1.4) 09/06/23 Blood Urea Nitrogen 11 mg/dL (9-16) 09/06/23 Sodium 142 mmol/L (135-145) 09/06/23 Potassium 4.1 mmol/L (3.3-5.1) 09/06/23 Chloride 106 mmol/L (96-108) 09/06/23 Carbon Dioxide 27 mmol/L (22-29) 09/06/23 Calcium 10.0 mg/dL (8.4-10.2) 09/06/23 FIJ-Laycgrt-Fx.Jeor Equation Height: 5 ft 4 in Weight: 248 lb Resting Metabolic Rate: 1957.82 Calculated Activity Level: Sedentary Calories Needed to Maintain Weight: 2349.38 Diagnosis Nutrition problem #1: excessive energy intake As related to (etiology) #1: diagnosis As evidenced by (sign/symptom) #1: weight gain PFSH Medical History No known health problems Family History Sister Pacemaker Social History Housing: Apartment Alcohol intake: never Patient Tobacco Use Status: Never used Tobacco e-Cigarette/Vaping Use: Never Used Current occupational status: employed 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 Used wt : 113 kg (10/2023) Est kcal as per MSJ: 2300 (40% carb, 30% fat/prot) Est fluid needs: 2500 ml/d (25 ml/kg bw) est prot: 113 g/d ( 1 g /kg bw) Rec fiber: increase to 8-10 g per day and gradually increase to 35 g as tolerated Rec Na: < 1500 mg /d Educate patient on: (R= Reviewed, V = verbalizes understanding N/R= Needs review N/A= not applicable) * Food sources of carbohydrates and serving adequate serving sizes : R V * Difference between complex carbohydrates and simple carbohydrates, role of fiber: R V * Differences between fats (MUFA/PUFA/saturated fats, trans fats) and food sources of various fats: R * Food sources of sodium and salt and healthy modifications for heart health and kidney health: R V * Vitamins and minerals: R * How to interpret food labels: R * Healthy Plate method concept: R V * Physical activity: benefits and precaution: R V Patient Instructions: Resume engaging in physical activity, start with 30 minute leisure walks at least 3 times a week Work on choosing nutrient dense snacks (fruit with peanut butter, string cheese and crackers , cucumbers with fruit) Coding Level of Care Code Nutr Indiv Subseq ([id number]) Diagnoses Type 2 diabetes mellitus with hyperglycemia, without long-term current use of insulin E11.65 Diabetes mellitus complication status: with hyperglycemia Diabetes mellitus chcf insulin use: without superintendent marine oil terminal use Time Spent (min) 30
[2023-10-10 09:41] VITALS: BMI 42.6
[2023-10-17 09:19] VITALS: BMI 42.6
== END 2023-10-10 10:10 | disposition home or self-care (01) ==
PROVIDERS: PCP Physician Assistant; Visit Provider Dietitian, Registered
DX: E11.65 Type 2 diabetes mellitus with hyperglycemia (principal)

== ENCOUNTER → 2023-10-10 09:21 | Outpatient (BNVA) | payer OTHER, SELFPAY | PROVIDERS: PCP Physician Assistant; Visit Provider Dietitian, Registered | DX: E11.65 Type 2 diabetes mellitus with hyperglycemia (principal) | CPT/HCPCS: 97803 ==

== ENCOUNTER 2023-11-21 09:31 | Outpatient (AMB) | payer OTHER, SELFPAY ==
--- NOTE | 2023-11-21 09:34 | A.OFFVIS_ITS ---
VS Expanded 11/21/23 09:35 Height 5 ft 4 in Weight 245 lb 13.047 oz BMI 42.2 Intake Visit Reasons: T2DM/CONFIRMED Allergies No Known Allergies Allergy (Verified 09/27/23 13:44) Nutrition Presentation Details: Pt presents for MNT f/u for T2DM Pt reports working on small dietary modifications, Challenges: Reports lack of physical activity and finds himself increasing intake when sedentary increase intake of fried foods items in the evening (fast food meals) BS Monitoring Most Recent Diabetes Results: Creatinine 0.86 mg/dL (0.5-1.4) 09/06/23 Blood Urea Nitrogen 11 mg/dL (9-16) 09/06/23 Sodium 142 mmol/L (135-145) 09/06/23 Potassium 4.1 mmol/L (3.3-5.1) 09/06/23 Chloride 106 mmol/L (96-108) 09/06/23 Carbon Dioxide 27 mmol/L (22-29) 09/06/23 Calcium 10.0 mg/dL (8.4-10.2) 09/06/23 [facility] Medical History No known health problems Family History Sister Pacemaker Social History Housing: Apartment Alcohol intake: never Patient Tobacco Use Status: Never used Tobacco e-Cigarette/Vaping Use: Never Used Current occupational status: employed 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 Used wt : 113 kg (10/2023), 112 (11/2023) Est kcal as per MSJ: 2300 (40% carb, 30% fat/prot) Est fluid needs: 2500 ml/d (25 ml/kg bw) est prot: 113 g/d ( 1 g /kg bw) Rec fiber: increase to 8-10 g per day and gradually increase to 35 g as tolerated Rec Na: < 1500 mg /d Educate patient on: (R= Reviewed, V = verbalizes understanding N/R= Needs review N/A= not applicable) * Food sources of carbohydrates and serving adequate serving sizes : R V * Difference between complex carbohydrates and simple carbohydrates, role of fiber: R V * Differences between fats (MUFA/PUFA/saturated fats, trans fats) and food sources of various fats: R * Food sources of sodium and salt and healthy modifications for heart health and kidney health: R V * Vitamins and minerals: R * How to interpret food labels: R * Healthy Plate method concept: R V * Physical activity: benefits and precaution: R V Patient Instructions: Restart walking /exercise , 15 minutes as a routine Continue working on reducing on salt and junk food - have a fruit instead goal 4 lbs less by next f/u Coding Level of Care Code Nutr Indiv Subseq ([id number]) Diagnoses Type 2 diabetes mellitus with hyperglycemia, without long-term current use of insulin E11.65 Diabetes mellitus termite exterminator helper insulin use: without residential use Diabetes mellitus complication status: with hyperglycemia Time Spent (min) 20
[2023-11-21 09:35] VITALS: BMI 42.2
== END 2023-11-21 10:03 | disposition home or self-care (01) ==
PROVIDERS: PCP Physician Assistant; Visit Provider Dietitian, Registered
DX: E11.65 Type 2 diabetes mellitus with hyperglycemia (principal)

== ENCOUNTER → 2023-11-21 09:31 | Outpatient (BNVA) | payer OTHER, SELFPAY | PROVIDERS: PCP Physician Assistant; Visit Provider Dietitian, Registered | DX: E11.65 Type 2 diabetes mellitus with hyperglycemia (principal); Z71.3 Dietary counseling and surveillance | CPT/HCPCS: 97803 ==

== ENCOUNTER 2024-06-24 10:17 | Emergency (ER) | payer OTHER, SELFPAY ==
--- NOTE | ~2024-06-24 | XR_ITS ---
EXAMINATION: XR CHEST CLINICAL INFORMATION: CP COMPARISON: None available on PACS. TECHNIQUE: Frontal view of the chest was obtained. FINDINGS: No consolidation, pleural effusion or pneumothorax. Cardiomediastinal silhouette size is normal. Osseous structures are intact. Mild S-shaped curvature of the thoracic spine.. XR/XR chest 1V IMPRESSION: No acute airspace disease. Electronically signed by: Abdulaziz Leahy MD 06/24/2024 11:26 AM EDT
--- NOTE | 2024-06-24 10:21 | ECG_ITS ---
Test Reason : cp Blood Pressure : */* mmHG Vent. 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
[2024-06-24 10:58] VITALS: BP 133/85; PULSE 92; RESP 16; TEMP 36.6; O2SAT 98; BMI 42.6
[2024-06-24 11:16] LABS: MANUAL DIFF FLAG NO
[2024-06-24 11:23] LABS: Basophils Percent Auto 0.4 % (0-2); Eosinophils Percent Auto 0.1 % (0-4); Hematocrit 47.5 % (42.0-52.0); Hemoglobin 16.4 g/dl (14.0-18.0); Imm Gran Abs Auto 0.03 X10*3/uL (0.00-0.03); Imm Gran Pct Auto 0.4 % (0.0-0.4); Lymphocytes Absolute Auto 1.9 X10*3/uL (1.2-4.9); Lymphocytes Percent Auto 22.7 % (20-40); Mean Corpuscular HGB Conc 34.5 g/dl (31.0-36.0); Mean Corpuscular Hemoglobin 29.2 pg (27.0-33.0); Mean Corpuscular Volume 84.5 fL (80.0-98.0); Mean Platelet Volume 11.6 fL (9.4-12.4); Monocytes Absolute Auto 0.6 X10*3/uL (0.1-1.2); Neutrophils Absolute Auto 5.9 x10*3/uL (2.0-8.3); Neutrophils Percent Auto 69.4 % (45-73); Platelet Count 207 X10*3/uL (160-400); Red Blood Count 5.62 X10*6/uL (4.60-5.80); Red Cell Distribution Width 13.4 % (11.0-16.0); White Blood Count 8.6 X10*3/uL (4.8-10.8)
[2024-06-24 11:35] LABS: Alanine Aminotransferase 22 U/L (0-40); Albumin Level 4.3 g/dL (3.5-5.0); Alkaline Phosphatase 76 U/L (39-117); Anion Gap 11 (12-20); Aspartate Amino Transferase 20 U/L (5-37); Bilirubin Total 0.6 mg/dL (0.0-1.0); Blood Urea Nitrogen 19 mg/dL (9-16); Calcium 10.1 mg/dL (8.4-10.2); Carbon Dioxide 29 mmol/L (22-29); Chloride 105 mmol/L (96-108); Creatinine Clr Calc Pharmacy 111.8; Estimated Glomerular Filt Rate > 60; Glucose Random 164 mg/dL (60-115); Potassium 3.8 mmol/L (3.3-5.1); Sodium 141 mmol/L (135-145); Total Protein 7.9 g/dL (6.5-8.0)
--- NOTE | 2024-06-24 11:37 | ED_ITS ---
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 Patient reports he was sitting in a chair yesterday getting his hair cut and developed neck/facial tightness and CP, and felt like he may pass out. He describes the pain and nonradiating and dull, and reports the pain resolved on its own a few hours later. He woke up this morning with similar symptoms, which prompted him to come to the ER. 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 Denies syncope, LOC, trauma/falls, fever, weakness, SOB, abd pain, N/V/D, numbness/tingling, recent illness/sick contacts. Denies alcohol, drug, cigarette uses. Denies symptoms/complaints at the time of my evaluation. Denies taking anything for the pain. MD complaint: chest pain Onset (ago): hour(s) Timing of current episode: episodic and now resolved Prior episodes: Yes Onset: during rest Pain radiation: none Quality: dull Relieving factors: nothing Exacerbating factors: nothing Risk Factors Coronary artery disease risk factors: hypertension Related Data Previous Rx's ?Medication ?Instructions ?Recorded blood-glucose meter (FreeStyle #1 ea 04/07/21 Lite Meter kit) lancets 28 gauge (FreeStyle #100 ea 04/07/21 Lancets) blood sugar diagnostic (FreeStyle #100 ea 03/17/23 Lite Strips) bacitracin 500 unit/gram topical 1 appl topical TID #14 grams 05/25/23 ointment cyclobenzaprine 10 mg tablet 10 mg PO TID PRN muscle spasm #10 05/25/23 tabs ibuprofen 600 mg tablet 600 mg PO Q6H PRN pain #20 tabs 05/25/23 lisinopril 20 1 tab PO DAILY #90 tabs 06/22/23 mg-hydrochlorothiazide 25 mg tablet amlodipine 10 mg tablet 10 mg PO DAILY 90 days #90 tabs 07/16/23 Allergies Allergy/AdvReac Type Severity Reaction Status Date / Time No Known Allergies Allergy Verified 06/24/24 10:58 Review of Systems 2 Constitutional: Constitutional: Reports no additional constitutional complaints, Denies chills, Denies fever(s) and Denies night sweats Eyes: Eyes: Reports no additional eye complaints, Denies blurry vision, Denies change in vision, Denies diplopia, Denies eye discharge, Denies loss of vision and Denies eye pain ENT: Denies dizziness Cardiovascular: Cardiovascular: Reports no additional cardiovascular complaints, Reports chest pain, Denies lightheadedness, Denies Loss of Consciousness and Denies dyspnea Respiratory: Respiratory: Reports no additional respiratory complaints and Denies dyspnea Gastrointestinal: Gastrointestinal: Reports no additional gastrointestinal complaints, Denies abdominal pain, Denies melena, Denies hematochezia, Denies change in bowel habits and Denies change in stool character Genitourinary: Genitourinary: Reports no additional male genitourinary complaints, Denies hematuria, Denies oliguria, Denies difficulty urinating, Denies dysuria, Denies urinary frequency, Denies urinary hesitancy, Denies urinary incontinence and Denies urinary urgency Musculoskeletal: Musculoskeletal: Reports no additional musculoskeletal complaints, Denies numbness and Denies tingling Neurologic: Denies dizziness, Denies loss of vision, Denies numbness and Denies tingling Psychiatric: Psychiatric: Reports no additional psychiatric complaints Endocrine: Endocrine: Reports no additional endocrine complaints Hematologic/Lymphatic: Hematologic/Lymphatic: Reports no additional hematologic/lymphatic complaints Allergic/Immunologic: Allergic/Immunologic: Reports no additional allergic/immunologic complaints [facility] Past Medical History Attestation statement: The following information was validated with the patient. 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 Cognitive needs: No Hearing needs: No Vision needs: No Physical Exam 2 Vital Signs: Vital Signs: Last Vital Signs Temp 97.9 F 06/24/24 12:45 Pulse 86 06/24/24 12:45 Resp 16 06/24/24 12:45 BP 123/79 06/24/24 12:45 Pulse Ox 98 06/24/24 12:45 O2 Del Method Room Air 06/24/24 12:45 BMI result Body Mass Index 42.6 Const: General: cooperative, no acute distress, alert and awake Nutritional Appearance: well nourished Orientation/consciousness: patient oriented x3 Limitations: no limitations HEENT: Head: Yes normal to inspection and Yes atraumatic Ears: hearing grossly normal bilaterally and external ears normal General nose exam: Normal external nose present, no nasal discharge noted and no epistaxis Face and sinus: Yes normal facial exam, No abrasion and No laceration Mouth: Normal oral and palatal mucosa present, no drooling and no muffled voice Eyes: General: appearance normal, both eyes and all related structures P eriorbital: periorbital findings normal Eyelids: Yes eyelids normal C onjunctivae: conjunctivae normal Pupils: Equal, round and reactive pupils present EOM: EOMs intact bilaterally Neck: Other: No ttp over neck, no ecchymosis/erythema Neck: Yes normal visual inspection, Yes full ROM and Yes no lymphadenopathy Chest: Other: Mild ttp over midchest, no ecchymosis/erythema Chest palpation & inspection: normal inspection of the chest Resp: Effort & Inspection: normal respiratory effort and able to speak in complete sentences GI: Inspection: Yes normal to inspection Neuro: General: patient oriented x3, moves all extremities and CN's II-XI intact bilaterally Cranial nerves: Yes Equal, round and reactive pupils present Cognition (Neuro): normal cognition Extrem: General: Yes normal to inspection, Yes full ROM and Yes capillary refill normal Psych: Appearance: grossly normal Mental Status: mental status grossly normal Affect: normal affect Attitude: cooperative Thought process: N ormal thought process present Thought content: Normal thought content present Insight: Good insight present (Psych) Medical Decision Making Medical Decision Making MDM Narrative: Patient is a 38 year old assigned male at with a history of SIN, Estrada's palsy, DM, and HTN presenting to the emergency department today with chest pain and neck stiffness. Patient's physical exam was as noted in the physical exam portion of this note. Patient's blood work was unremarkable. Patient's EKG was unremarkable. Patient's chest x-ray showed no acute process. I explained my physical exam findings as well as all test results to the patient. I answered all questions asked by the patient. I stressed the importance of the patient taking his medication as directed (either prescribed or as the over the counter packaging recommends). I stressed the importance of the patient following up with his primary care provider. I stressed the importance of the patient returning to the emergency department immediately if his symptoms were to worsen or if he were to develop any dizziness, shortness of breath, difficulty breathing, chest pain, blurry vision, loss of vision, nausea, vomiting, abdominal pain, fever, chills, back pain, or any other complaints. Patient verbalized agreement and understanding with this treatment plan and discharge. Differential Diagnosis Differential Diagnoses: The differential diagnosis associated with the presentation includes Chest pain Atypical chest pain NSTEMI STEMI Anxiety Admission/Observation Consideration of admission/observation: Escalation of care including admission/observation considered Patient would have been admitted to the hospital had his work up had any findings where hospital admission was appropriate and his clinical presentation warranted hospital admission. Lab Data [facility] Lab Attestation statement: I reviewed the patient's lab results. My interpretation of these results are in the MDM Rationale portion of this note. 06/24/24 11:11 06/24/24 11:11 Labs: Lab Results 06/24/24 Range/Units 11:11 WBC 8.6 (4.8-10.8) X10*3/uL RBC 5.62 (4.60-5.80) X10*6/uL Hgb 16.4 (14.0-18.0) g/dl Hct 47.5 (42.0-52.0) % MCV 84.5 (80.0-98.0) fL MCH 29.2 (27.0-33.0) pg MCHC 34.5 (31.0-36.0) g/dl RDW 13.4 (11.0-16.0) % Plt Count 207 (160-400) X10*3/uL MPV 11.6 (9.4-12.4) fL Immature Gran % (Auto) 0.4 (0.0-0.4) % Neut % (Auto) 69.4 (45-73) % Lymph % (Auto) 22.7 (20-40) % [place] % (Auto) 7.0 (2-11) % Eos % (Auto) 0.1 (0-4) % Baso % (Auto) 0.4 (0-2) % Lymph # (Auto) 1.9 (1.2-4.9) X10*3/uL [place] # (Auto) 0.6 (0.1-1.2) X10*3/uL Eos # (Auto) 0.0 (0.0-0.4) X10*3/uL Baso # (Auto) 0.0 (0.0-0.2) X10*3/uL Abs Immat Gran (auto) 0.03 (0.00-0.03) X10*3/uL Absolute Neuts (auto) 5.9 (2.0-8.3) x10*3/uL Absolute Nucleated RBC 0.000 (0.0-0.012) X10*3/uL Nucleated RBC % (auto) 0.0 (0.0-0.2) /100WBC Sodium 141 (135-145) mmol/L Potassium 3.8 (3.3-5.1) mmol/L Chloride 105 (96-108) mmol/L Carbon Dioxide 29 (22-29) mmol/L Anion Gap 11 L (12-20) BUN 19 H (9-16) mg/dL Creatinine 1.02 (0.5-1.4) mg/dL Estim Creat Clear Calc 111.8 Estimated GFR > 60 Random Glucose 164 H (60-115) mg/dL Calcium 10.1 (8.4-10.2) mg/dL Total Bilirubin 0.6 (0.0-1.0) mg/dL AST 20 (5-37) U/L ALT 22 (0-40) U/L Alkaline Phosphatase 76 (39-117) U/L Troponin I High Sens 2.8 (<3.5-35.0) ng/L Total Protein 7.9 (6.5-8.0) g/dL Albumin 4.3 (3.5-5.0) g/dL Independent Interpretation I performed an independent interpretation of an: EKG and Plain X-Ray Interpretation: My interpretation is in agreement with the radiologist's impression of this imaging study. L EXAMINATION: XR CHEST CLINICAL INFORMATION: CP COMPARISON: None available on PACS. TECHNIQUE: Frontal view of the chest was obtained. FINDINGS: No consolidation, pleural effusion or pneumothorax. Cardiomediastinal silhouette size is normal. Osseous structures are intact. Mild S-shaped curvature of the thoracic spine. XR/XR chest 1V IMPRESSION: No acute airspace disease. Electronically signed by: Abdulaziz Leahy MD 06/24/2024 11:26 AM EDT RP Dictated By: Abdulaziz Sharp MD Signed By: Electronically signed by Abdulaziz Briggs MD 06/24/24 1126 I independently interpreted this EKG and am in agreement with the below findings: Vent. Rate: 98 BPM Atrial Rate: 98 BPM P-R Int: 152 ms QRS Dur: 80 ms QT Int: 348 ms P-R-T Axes: 15 -15 51 degrees QTcB Int: 444 ms Normal sinus rhythm Minimal voltage criteria for LVH, may be normal variant (R in aVL) When compared with ECG of 06-Sep-2023 09:51, No significant change was found Electronically Signed By: BRUCE GUERIN MD Dictated By: Bruce Guerin MD Signed By: Electronically signed by Bruce Guerin MD 06/24/24 1408 Radiology Impression Discussion of test interpretation with radiology: I have reviewed the radiologist's reading. Chronic Conditions Patient?s care impacted by: Diabetes and Hypertension Discharge Plan Discharge Clinical Impression: Chest pain Patient Disposition: Home, Self-Care Instructions: Chest Pain (DC) Additional Instructions: Follow up with your primary care provider. Return to the emergency department immediately if your symptoms worsen or if you develop any numbness, tingling, dizziness, shortness of breath, difficulty breathing, chest pain, blurry vision, loss of vision, nausea, vomiting, abdominal pain, fever, chills, back pain, or any other complaints. Please see the information below about our Patient Portal. If you are not yet enrolled in the [facility] Patient Portal, you will receive an enrollment email invitation following your visit to any [facility] setting. You may also self-enroll in the Patient Portal by visiting our website: [email or web address] The following information is required to access the Patient Portal: - Your [facility] Medical Record Number - Your personal home email address (must match what is in your electronic medical record, Registration staff can assist with this) - Name - Date of Capabilities of the Patient Portal: - Message some providers - View upcoming appointments - Access your health summary, medical history, and visit history - View current conditions and allergies - View procedure and lab results - View your medications, including guidelines, side effects, and precautions - Complete pre-appointment questionnaires requested by your provider - Ready summary reports of your office visits and procedures To access the Patient Portal Mobile [employer], follow these directions: - Search [employer] in the [employer] Store or [employer] Store - Download the [employer] - Search for [facility] - Enter your login/password Prescriptions: No Action (DME) FreeStyle Lite Strips Strip See Rx Instructions .ROUTE .MEDSUPPLY Qty: 100 3RF Rx Instructions: As directed lisinopril-hydrochlorothiazide 20-25 mg tablet 1 tab PO DAILY Qty: 90 1RF amlodipine 10 mg tablet 10 mg PO DAILY 90 Days Qty: 90 1RF cyclobenzaprine 10 mg tablet 10 mg PO TID PRN (Reason: muscle spasm) Qty: 10 0RF ibuprofen 600 mg tablet 600 mg PO Q6H PRN (Reason: pain) Qty: 20 0RF bacitracin 500 unit/gram ointment 1 appl topical TID Qty: 14 0RF (DME) lancets [FreeStyle Lancets] 28 gauge misc See Rx Instructions .ROUTE .MEDSUPPLY Qty: 100 3RF Rx Instructions: As directed (DME) blood-glucose meter [FreeStyle Lite Meter] Kit See Rx Instructions .Route Qty: 1 0RF Rx Instructions: As directed Referrals: Wale Ennis PA-C [Primary Care Provider] - Stand Alone Forms: Work/School Release Interventions: ED Discharge Assessment Last Done: 06/24/24 12:45 Discharge Date/Time: 06/24/24 12:46 Print Language: Hungarian
[2024-06-24 11:40] LABS: Troponin-I High Sensitivity 2.8 ng/L (<3.5-35.0)
[2024-06-24 12:45] VITALS: BP 123/79; PULSE 86; RESP 16; TEMP 36.6; O2SAT 98
--- OUTSIDE RECORDS SUMMARY | 2024-06-24 14:54 | XMS_ITS | Clinical Summary ---
Author Organization [facility] Address [address] [address] Phone Care Team Providers Care Truck Trailer Final Inspector Name Role Phone Wale Ennis Primary Care Provider [phone] Allergies No known active allergies Medications metFORMIN (GLUCOPHAGE) 1000 MG tablet Take 1,000 mg by mouth 08/01/2021 Active FREESTYLE LITE test strip DIRECTED ONCE PER DAY 07/09/2021 Active amLODIPine (NORVASC) 10 MG tablet Take 5 mg by mouth 1 (one) time each day 08/29/2021 Active losartan (COZAAR) 50 MG tablet TAKE 1 TABLET BY MOUTH EVERY DAY 90 tablet 3 11/11/2023 Active Active Problems Problem Noted Date Diagnosed Date Chronic kidney disease, stage 2 (mild) 4 Type 2 diabetes mellitus wit h diabetic chronic kidney disease 06/29/2022 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 hypertensio n 06/29/2022 Proteinuria 12/06/2021 Family History Medical History Relation Comments Hypertension Father Diabetes Mother Hypertension Mother Relation Status Comments Father Mother Alive Social History Tobacco Use Types Packs/Day Years Used Date Smoking Tobacco: Never Assessed Tobacco Cessation:Counseling Given: No Alcohol Use Standard Drinks/Week Comments Not Currently 0 (1 standard drink = 0.6 oz pur e alcohol) Sex and Gender Information Value Date Recorded Sex Assigned at Not on file Legal Sex Male 10:55 AM EDT Gender Identity Not on file Sexual Orientation Not on file Last Filed Vital Signs Vital Sign Reading Time Taken Comments Blood Pressure 128/70 08/07/2023 9:06 AM EDT Pulse 72 08/07/2023 9:06 AM EDT Temperature - - Respiratory Rate - - Oxygen Saturation 96% 08/07/2023 9:06 AM EDT Inhaled Oxygen Concentration - - Weight 107 kg (236 lb) 08/07/2023 9:06 AM EDT Height - - Body Mass Index - - Plan of Treatment Upcoming Encounters Date Type Department Care Team (Late st Contact Info) Description 10/27/2024 4:00 PM EDT Office Visit [facility] [address] [place] [address] Walker Beard MD [address] [facility] [address] [place] [address] Health Maintenance Due Date Last Done Comments Hepatitis B Vaccine (1 of 3 - 19+ 3-dose series) 09/06 Pneumococcal Vaccine: Peds ( 0 to 5 Years) and At-Risk Patients (6 to 49 Years) (1 of 2 - PCV) 2004 Diabetes: Hemoglobin A1C 06/29/2022 Diabetes: Ophthalmology Exam 06/29/2022 Diabetes: Pedal Pulse Checked 06/29/2022 Diabetes: Sensory Foot Exam 06/29/2022 Diabetes: Visual Foot Exam 06/29/2022 Influenza Vaccine (Season Ended) 2024 Care Teams Truck Trailer Final Inspector Relationship Specialty Start Date End Date Wale Ennis PA [address], [address] [place] [address] PCP - General Physician Patient Service Technician Pst 07/26/21
== END 2024-06-24 12:46 | disposition home or self-care (01) ==
PROVIDERS: Emergency Provider Emergency Medicine; PCP Physician Assistant
DX: R07.9 Chest pain, unspecified (principal); I10 Essential (primary) hypertension; E11.9 Type 2 diabetes mellitus without complications; F41.9 Anxiety disorder, unspecified; G51.0 Bell's palsy
CPT/HCPCS: 36415; 71045; 80053; 84484; 85025; 93005; 99283

== ENCOUNTER → 2024-06-24 10:21 | Outpatient (BNV) | payer OTHER, SELFPAY | PROVIDERS: Emergency Provider Emergency Medicine; PCP Physician Assistant; Visit Provider Internal Medicine Cardiovascular Disease | DX: I25.2 Old myocardial infarction (principal) | CPT/HCPCS: 93010 ==

== ENCOUNTER → 2024-06-24 11:02 | Outpatient (BNV) | payer OTHER, SELFPAY | PROVIDERS: Emergency Provider Emergency Medicine; PCP Physician Assistant; Visit Provider Radiology Diagnostic Radiology | DX: R07.9 Chest pain, unspecified (principal) | CPT/HCPCS: 71045 ==

== ENCOUNTER 2024-07-03 13:18 | Emergency (ER) | payer OTHER, SELFPAY ==
--- NOTE | ~2024-07-03 | CT_ITS ---
EXAMINATION: CT HEAD WITHOUT CONTRAST CLINICAL INFORMATION: L facial numbness, diff swallowing x1mos COMPARISON: May 24, 2023. TECHNIQUE: Contiguous axial imaging was performed from the skull base to vertex without intravenous administration of contrast. This CT examination was performed using dose optimization techniques as appropriate, variously including the following: *Automated exposure control *Adjustment of mA and/or kV according to patient size (this includes techniques or standardized protocols for targeted exams where dose is matched to indication/reason for exam; i.e. extremities or head) *Use of iterative reconstruction technique DLP: 1493 mGy-cm FINDINGS: No acute intracranial hemorrhage, mass effect, midline shift, hydrocephalus or herniation. Ruby-white matter differentiation is normal. Sellar/suprasellar region demonstrated no gross masses. Craniocervical junction is intact and normal. No air-fluid levels in the paranasal sinuses. Tympanic cavities and mastoid cells are aerated. Pneumatized petrous apices. Calcifications at the rosalind clinoid ligament. Old traumatic deformities, nasal bones. Calcifications in the trochlea both orbits. CT/CT head/brain wo IV con IMPRESSION: No acute brain abnormality. Electronically signed by: Abdulaziz Leahy MD 07/03/2024 02:30 PM EDT
[2024-07-03 13:30] VITALS: BP 132/82; PULSE 108; RESP 16; TEMP 36.6; O2SAT 99; BMI 39.5
--- NOTE | 2024-07-03 13:30 | ED_ITS ---
HPI - Neuro Symptoms/Deficit General Chief Complaint: Neuro Symptoms/Deficit Stated Complaint: Numbness On L Side Of Face, Difficulty Eating Related Data Previous Rx's ?Medication ?Instructions ?Recorded blood-glucose meter (FreeStyle #1 ea 04/07/21 Lite Meter kit) lancets 28 gauge (FreeStyle #100 ea 04/07/21 Lancets) blood sugar diagnostic (FreeStyle #100 ea 03/17/23 Lite Strips) bacitracin 500 unit/gram topical 1 appl topical TID #14 grams 05/25/23 ointment cyclobenzaprine 10 mg tablet 10 mg PO TID PRN muscle spasm #10 05/25/23 tabs ibuprofen 600 mg tablet 600 mg PO Q6H PRN pain #20 tabs 05/25/23 lisinopril 20 1 tab PO DAILY #90 tabs 06/22/23 mg-hydrochlorothiazide 25 mg tablet amlodipine 10 mg tablet 10 mg PO DAILY 90 days #90 tabs 07/16/23 Allergies Allergy/AdvReac Type Severity Reaction Status Date / Time No Known Allergies Allergy Verified 07/03/24 13:33 [facility] Past Medical History Medical History No known health problems Family History Family History Sister Pacemaker Social History Social History Housing: Apartment Alcohol intake: never Patient Tobacco Use Status: Never used Tobacco e-Cigarette/Vaping Use: Never Used Advance Directives: No Advance Directives Information Provided: No Do you have a plan to hurt others: No Plan Current occupational status: employed 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 Full HPI, ROS and PE to be performed by primary ED provider. 38 yo M w/PMHx [place] Palsy presenting to the ED c/o L sided facial numbness, weakness, difficult time eating/swallowing, lightheadedness x 1 months. States when laughing feels a hard tug on face. Admits to L shoulder/chest heaviness. PE: No focal neuro deficits (face at basline since Estrada's Palsy). Clear speech. Ambulating with steady gait Plan: EKG, labs, viral testing, head CT Medical Decision Making Lab Data 07/03/24 13:53 07/03/24 13:53 Labs: Lab Results 07/03/24 Range/Units 13:53 WBC 9.4 (4.8-10.8) X10*3/uL RBC 5.54 (4.60-5.80) X10*6/uL Hgb 16.4 (14.0-18.0) g/dl Hct 47.2 (42.0-52.0) % MCV 85.2 (80.0-98.0) fL MCH 29.6 (27.0-33.0) pg MCHC 34.7 (31.0-36.0) g/dl RDW 13.7 (11.0-16.0) % Plt Count 203 (160-400) X10*3/uL MPV 11.8 (9.4-12.4) fL Immature Gran % (Auto) 0.2 (0.0-0.4) % Neut % (Auto) 75.2 H (45-73) % Lymph % (Auto) 17.9 L (20-40) % [place] % (Auto) 6.4 (2-11) % Eos % (Auto) 0.1 (0-4) % Baso % (Auto) 0.2 (0-2) % Lymph # (Auto) 1.7 (1.2-4.9) X10*3/uL [place] # (Auto) 0.6 (0.1-1.2) X10*3/uL Eos # (Auto) 0.0 (0.0-0.4) X10*3/uL Baso # (Auto) 0.0 (0.0-0.2) X10*3/uL Abs Immat Gran (auto) 0.02 (0.00-0.03) X10*3/uL Absolute Neuts (auto) 7.1 (2.0-8.3) x10*3/uL Absolute Nucleated RBC 0.000 (0.0-0.012) X10*3/uL Nucleated RBC % (auto) 0.0 (0.0-0.2) /100WBC Sodium 140 (135-145) mmol/L Potassium 3.5 (3.3-5.1) mmol/L Chloride 104 (96-108) mmol/L Carbon Dioxide 27 (22-29) mmol/L Anion Gap 13 (12-20) BUN 30 H (9-16) mg/dL Creatinine 1.08 (0.5-1.4) mg/dL Estim Creat Clear Calc 101.3 Estimated GFR > 60 Random Glucose 166 H (60-115) mg/dL Calcium 10.0 (8.4-10.2) mg/dL Magnesium 2.1 (1.6-2.6) mg/dL Total Bilirubin 0.6 (0.0-1.0) mg/dL Direct Bilirubin 0.2 (0.0-0.5) mg/dL AST 24 (5-37) U/L ALT 26 (0-40) U/L Alkaline Phosphatase 75 (39-117) U/L Troponin I High Sens 3.6 (<3.5-35.0) ng/L Total Protein 8.3 H (6.5-8.0) g/dL Albumin 4.5 (3.5-5.0) g/dL Lyme Screen IgG & IgM <0.90 index Influenza Type A (PCR) NEGATIVE (Negative) Influenza Type B (PCR) NEGATIVE (Negative) RSV RNA Qual (PCR) NEGATIVE (Negative) SARS-CoV-2 RNA (RT-PCR) NEGATIVE (Negative) Discharge Plan Discharge Clinical Impression: Facial numbness Patient Disposition: Left W/O Completing Treatment Prescriptions: No Action (DME) FreeStyle Lite Strips Strip See Rx Instructions .ROUTE .MEDSUPPLY Qty: 100 3RF Rx Instructions: As directed lisinopril-hydrochlorothiazide 20-25 mg tablet 1 tab PO DAILY Qty: 90 1RF amlodipine 10 mg tablet 10 mg PO DAILY 90 Days Qty: 90 1RF cyclobenzaprine 10 mg tablet 10 mg PO TID PRN (Reason: muscle spasm) Qty: 10 0RF ibuprofen 600 mg tablet 600 mg PO Q6H PRN (Reason: pain) Qty: 20 0RF bacitracin 500 unit/gram ointment 1 appl topical TID Qty: 14 0RF (DME) lancets [FreeStyle Lancets] 28 gauge misc See Rx Instructions .ROUTE .MEDSUPPLY Qty: 100 3RF Rx Instructions: As directed (DME) blood-glucose meter [FreeStyle Lite Meter] Kit See Rx Instructions .Route Qty: 1 0RF Rx Instructions: As directed Discharge Date/Time: 07/03/24 21:05
--- NOTE | 2024-07-03 13:32 | ECG_ITS ---
Test Reason : CP Blood Pressure : */* mmHG Vent. Rate : 107 BPM Atrial Rate : 107 BPM P-R Int : 156 ms QRS Dur : 80 ms QT Int : 334 ms P-R-T Axes : 6 -18 27 degrees QTcB Int : 445 ms Sinus tachycardia Minimal voltage criteria for LVH, may be normal variant ( R in aVL ) Anterolateral infarct (cited on or before 10-Mar-2021) Abnormal ECG When compared with ECG of 24-Jun-2024 10:20, No significant change was found Referred By: Tara Wise Electronically Signed By: XU GRIER
[2024-07-03 14:03] LABS: MANUAL DIFF FLAG NO
[2024-07-03 14:07] LABS: Basophils Percent Auto 0.2 % (0-2); Eosinophils Percent Auto 0.1 % (0-4); Hematocrit 47.2 % (42.0-52.0); Hemoglobin 16.4 g/dl (14.0-18.0); Imm Gran Abs Auto 0.02 X10*3/uL (0.00-0.03); Imm Gran Pct Auto 0.2 % (0.0-0.4); Lymphocytes Absolute Auto 1.7 X10*3/uL (1.2-4.9); Lymphocytes Percent Auto 17.9 % (20-40); Mean Corpuscular HGB Conc 34.7 g/dl (31.0-36.0); Mean Corpuscular Hemoglobin 29.6 pg (27.0-33.0); Mean Corpuscular Volume 85.2 fL (80.0-98.0); Mean Platelet Volume 11.8 fL (9.4-12.4); Monocytes Absolute Auto 0.6 X10*3/uL (0.1-1.2); Monocytes Percent Auto 6.4 % (2-11); Neutrophils Absolute Auto 7.1 x10*3/uL (2.0-8.3); Neutrophils Percent Auto 75.2 % (45-73); Platelet Count 203 X10*3/uL (160-400); Red Blood Count 5.54 X10*6/uL (4.60-5.80); Red Cell Distribution Width 13.7 % (11.0-16.0); White Blood Count 9.4 X10*3/uL (4.8-10.8)
[2024-07-03 14:21] LABS: Alanine Aminotransferase 26 U/L (0-40); Albumin Level 4.5 g/dL (3.5-5.0); Alkaline Phosphatase 75 U/L (39-117); Anion Gap 13 (12-20); Aspartate Amino Transferase 24 U/L (5-37); Bilirubin Direct 0.2 mg/dL (0.0-0.5); Bilirubin Total 0.6 mg/dL (0.0-1.0); Blood Urea Nitrogen 30 mg/dL (9-16); Carbon Dioxide 27 mmol/L (22-29); Chloride 104 mmol/L (96-108); Creatinine Clr Calc Pharmacy 101.3; Estimated Glomerular Filt Rate > 60; Glucose Random 166 mg/dL (60-115); Magnesium 2.1 mg/dL (1.6-2.6); Potassium 3.5 mmol/L (3.3-5.1); Sodium 140 mmol/L (135-145); Total Protein 8.3 g/dL (6.5-8.0)
[2024-07-03 14:27] LABS: Troponin-I High Sensitivity 3.6 ng/L (<3.5-35.0)
[2024-07-03 14:57] LABS: Influenza A PCR NEGATIVE (Negative); Influenza B PCR NEGATIVE (Negative); Resp Syncy Virus RNA Qual PCR NEGATIVE (Negative); SARS COV2 PCR INHOUSE NEGATIVE (Negative)
[2024-07-04 05:58] LABS: Lyme Abs Screen <0.90 index
== END 2024-07-03 21:05 | disposition left against medical advice (07) ==
PROVIDERS: Physician Assistant; Emergency Provider Emergency Medicine; PCP Physician Assistant
DX: R20.0 Anesthesia of skin (principal); R00.0 Tachycardia, unspecified; E11.9 Type 2 diabetes mellitus without complications; I10 Essential (primary) hypertension; Z03.818 Encounter for observation for suspected exposure to other biological agents ruled out
CPT/HCPCS: 0241U; 36415; 70450; 80048; 80076; 83735; 84484; 85025; 86617; 86618; 93005; 99283; 99284

== ENCOUNTER → 2024-07-03 13:31 | Outpatient (BNV) | payer OTHER, SELFPAY | PROVIDERS: PCP Physician Assistant; Visit Provider Radiology Diagnostic Radiology | DX: R20.0 Anesthesia of skin (principal); R13.10 Dysphagia, unspecified | CPT/HCPCS: 70450 ==

== ENCOUNTER → 2024-07-03 13:32 | Outpatient (BNV) | payer OTHER, SELFPAY | PROVIDERS: PCP Physician Assistant; Visit Provider Internal Medicine | DX: I25.2 Old myocardial infarction (principal); R00.0 Tachycardia, unspecified | CPT/HCPCS: 93010 ==